=== PATIENT | female | born 1965 | race Hispanic/Latino ===

== ENCOUNTER 2017-12-26 09:27 | Inpatient (IN) | payer OTHER, SELFPAY ==
[~2017-12-26] VITALS: Ht 157.5 cm; Wt 69.5 kg
[2017-12-26 10:53] VITALS: BP 121/49
[2017-12-26 10:54] LABS: BASOPHILS % (AUTO) 0.7 % (0.0-5.0); EOSINOPHILS % (AUTO) 4.9 % (0.0-8.0); HEMATOCRIT 41.4 % (36-48); LYMPHOCYTES % (AUTO) 20.5 % (21.0-51.0); MEAN CORPUSCULAR HEMOGLOBIN 28.4 pg (27.0-33.0); MEAN CORPUSCULAR HGB CONC 33.3 g/dL (32.0-36.0); MEAN CORPUSCULAR VOLUME 85.3 fL (79-99); MONOCYTES % (AUTO) 7.5 % (3.0-13.0); NEUTROPHILS % (AUTO) 66.4 % (40.0-77.0); NUCLEATED RED BLOOD CELLS 0.1 % (0.0-0.19); PLATELET COUNT (AUTO) 339 K/uL (130-400); RED BLOOD CELL COUNT(AUTO) 4.85 MIL/uL (4.00-5.50); RED CELL DISTRIBUTION WIDTH 14.9 % (11.0-15.5); WHITE BLOOD COUNT (AUTO) 6.3 K/uL (4.8-10.8)
[2017-12-26] MEDS ORDERED: LEVO25TA54 PO (11:31)
[2017-12-26] MEDS ORDERED: IBUP-2070 PO (11:31)
[2017-12-26] MEDS ORDERED: IRON-15 PO (15:48)
[2017-12-31] VITALS (26 sets, daily range): BP systolic 99–140; BP diastolic 50–78
[2017-12-31] MEDS ORDERED: LACTATED RINGERS 1000ML 1,000 ML IV SCH (06:00)
[2017-12-31] MEDS: CEFAZOLIN SODIUM 1 GM VIAL IVP SCH ×2 (08:00→09:25)
[2017-12-31] MEDS ORDERED: ROCURONIUM 10MG/1ML SYR 10 MG/ML ML ONE (09:08)
[2017-12-31] MEDS ORDERED: DEXAMETHASONE SOD PHOSPHATE 10MG/ML 1ML VIAL ONE (09:08)
[2017-12-31] MEDS ORDERED: PROPOFOL 10 MG/ML 20ML VIAL IV ONE (09:08)
[2017-12-31] MEDS ORDERED: LIDOCAINE PF 2% 5ML ABBOJECT ONE ×2 (09:08→09:09)
[2017-12-31] MEDS ORDERED: NEOSTIGMINE 5MG/5ML SYR IV ONE (09:08)
[2017-12-31] MEDS ORDERED: ONDANSETRON HCL 4 MG/2 ML VIAL ONE ×2 (09:08→12:20)
[2017-12-31] MEDS ORDERED: GLYCOPYRROLATE 1 MG/5 ML SYRINGE ONE (09:08)
[2017-12-31] MEDS ORDERED: MIDAZOLAM HCL 1 MG/ML 2ML VIAL ONE (09:08)
[2017-12-31] MEDS ORDERED: FENTANYL CITRATE PF 50 MCG/1 ML 5ML AMP IV ONE (09:09)
[2017-12-31] MEDS ORDERED: THROMBIN-JMI 20000 UNIT KIT TP ONE (10:59)
[2017-12-31] MEDS ORDERED: ONDANSETRON HCL 4 MG/2 ML VIAL IVP PRN (12:15)
[2017-12-31] MEDS ORDERED: BISACODYL 10 MG SUPP.RECT RC PRN (12:15)
[2017-12-31] MEDS ORDERED: ACETAMINOPHEN-CODEINE 300/30MG TAB PO PRN (12:15)
[2017-12-31] MEDS ORDERED: PROMETHAZINE HCL 25 MG/ML 1ML AMPULE IM PRN (12:15)
[2017-12-31] MEDS ORDERED: MEPERIDINE-PF 25 MG/ML SYG ONE (12:30)
[2017-12-31 12:41] LABS: INR 0.99 (0.85-1.15); PARTIAL THROMBOPLASTIN TIME 25.7 SEC (26.3-35.5); PROTHROMBIN TIME 10.4 SEC (9.6-11.6)
[2017-12-31] MEDS: DEXTROSE 5 %-0.45 % NACL 1,000 ML IV PRN ×2 (13:17→21:20)
[2017-12-31] MEDS: MEPERIDINE-PF 75 MG/ML SYG IM PRN (15:23)
[2017-12-31] MEDS: PROMETHAZINE HCL 25 MG/ML 1ML AMPULE IM PRN (15:24)
[2017-12-31 15:26] LABS: HEMATOCRIT 37.5 % (36-48)
[2017-12-31] MEDS: DOCUSATE SODIUM 100 MG CAP PO PRN (21:17)
[2017-12-31] MEDS: SIMETHICONE 80 MG TAB.CHEW PO PRN (21:17)
[2018-01-01 00:12] VITALS: BP 125/71
[2018-01-01 03:43] VITALS: BP 126/63
[2018-01-01] MEDS: PROMETHAZINE HCL 25 MG/ML 1ML AMPULE IM PRN (03:47)
[2018-01-01] MEDS: MEPERIDINE-PF 75 MG/ML SYG IM PRN (03:48)
[2018-01-01] MEDS: DEXTROSE 5 %-0.45 % NACL 1,000 ML IV PRN (05:40)
[2018-01-01 06:21] LABS: HEMATOCRIT 32.9 % (36-48); MEAN CORPUSCULAR HEMOGLOBIN 28.1 pg (27.0-33.0); MEAN CORPUSCULAR HGB CONC 33.3 g/dL (32.0-36.0); MEAN CORPUSCULAR VOLUME 84.3 fL (79-99); PLATELET COUNT (AUTO) 341 K/uL (130-400); RED BLOOD CELL COUNT(AUTO) 3.91 MIL/uL (4.00-5.50); RED CELL DISTRIBUTION WIDTH 15.1 % (11.0-15.5); WHITE BLOOD COUNT (AUTO) 16.5 K/uL (4.8-10.8)
[2018-01-01] MEDS: LEVOTHYROXINE 25 MCG TABLET PO SCH (06:40)
[2018-01-01 07:27] VITALS: BP 116/67
[2018-01-01] MEDS ORDERED: IBUPROFEN 800 MG TAB ONE (09:39)
[2018-01-01] MEDS ORDERED: DOCUSATE SODIUM 100 MG CAP PO PRN (09:45)
[2018-01-01] MEDS: SIMETHICONE 80 MG TAB.CHEW PO PRN ×4 (09:47→21:26)
[2018-01-01] MEDS: DOCUSATE SODIUM 100 MG CAP PO PRN ×2 (09:47→21:26)
[2018-01-01 11:19] VITALS: BP 118/66
[2018-01-01 15:34] VITALS: BP 92/60
[2018-01-01 20:01] VITALS: BP 109/67
[2018-01-01] MEDS: IBUPROFEN 800 MG TAB PO PRN (21:27)
[2018-01-02 00:51] VITALS: BP 94/58
[2018-01-02 03:53] VITALS: BP 103/55
[2018-01-02] MEDS: LEVOTHYROXINE 25 MCG TABLET PO SCH (06:45)
[2018-01-02 07:29] VITALS: BP 100/74
[2018-01-02] MEDS: DOCUSATE SODIUM 100 MG CAP PO PRN (09:34)
[2018-01-02] MEDS: SIMETHICONE 80 MG TAB.CHEW PO PRN (09:34)
[2018-01-02] MEDS: IBUPROFEN 800 MG TAB PO PRN (09:35)
[2018-01-02 11:25] VITALS: BP 114/73
[2018-01-02 15:46] VITALS: BP 104/79
== END 2018-01-02 15:50 | disposition home or self-care (01) | DRG 743 ==
LOC: EDSTATUS 09:30 → DAHIP 12-31 07:42 → WSH 12-31 12:54
PROVIDERS: ADMIT Specialist; ATTEND Specialist
PROC: 0UT20ZZ Resection of Bilateral Ovaries, Open Approach (ICD-10-PCS; 2017-12-31)
PROC: 0UT90ZZ Resection of Uterus, Open Approach (ICD-10-PCS; principal; 2017-12-31 09:15)
PROC: 0UT70ZZ Resection of Bilateral Fallopian Tubes, Open Approach (ICD-10-PCS; 2017-12-31 09:15)
DX: N92.0 Excessive and frequent menstruation with regular cycle (principal); D64.9 Anemia, unspecified; N73.6 Female pelvic peritoneal adhesions (postinfective); N85.2 Hypertrophy of uterus; Z98.891 History of uterine scar from previous surgery; Z80.3 Family history of malignant neoplasm of breast
CPT/HCPCS: 36415; 84702; 85014; 85018; 85025; 85027; 85384; 85610; 85730; 86850; 86900; 86901; 88307; A4218; A4344; J0690; J1100; J2001; J2175; J2250; J2405; J2550; J2704; J2710; J3010; J3490; J7120